=== PATIENT | male | born 1945 | race Caucasian/White ===

== ENCOUNTER → 2017-04-18 | Outpatient (CLI) | payer OTHER ==
[~2017-04-18] VITALS: Ht 172.7 cm; Wt 106.6 kg
[~2017-04-18] MED LIST: ACETAMINOPHEN 325 MG TAB PO PRN; DOCUSATE SOD 100 MG CAP PO SCH; GABA-497 PO; HYDR-4663 PO; HYDROcodone-ACET 10/325MG TAB PO PRN; HYDROmorphone HCL 2 MG/ML VL IV PRN; LACTATED RINGER'S 1,000 ML IV SCH; LOVA40TA72 PO; METO25TA5 PO; ONDANSETRON HCL 4 MG/2 ML VIAL IV PRN; SODIUM CHLOR 0.9% PF (SALINE LOCK) 10ML VIAL IV SCH; TEMAZEPAM 15 MG CAP PO PRN; WARF4TAB33 PO; ceFAZolin 1GM/50ML D5W 50 ML IV SCH; oxyCODONE ER 10 MG TAB PO SCH
[2017-04-18 12:48] LABS: Basophils # (auto) 0 uL; Basophils % (auto) 0.6 % (0.0-2.0); CONDITION Y; Eosinophils # (auto) 0.1 uL; Eosinophils % (auto) 1.8 % (0.0-7.0); Hematocrit 43.2 % (41.0-53.0); Lymphocytes # (auto) 2.2 uL; Lymphocytes % (auto) 32.5 % (10.0-50.0); Mean Corpuscular Hemoglobin 31.2 pg (28.0-32.0); Mean Corpuscular Hgb Conc. 34.8 g/dL (32.0-36.0); Mean Corpuscular Volume 89.8 fL (80.0-100.0); Mean Platelet Volume 8.7 fL (7.4-10.4); Monocytes # (auto) 0.6 uL; Monocytes % (auto) 9.4 % (0.0-12.0); Neutrophils # (auto) 3.7 uL; Neutrophils % (auto) 55.7 % (37.0-80.0); Platelet Count (auto) 148 10^3/uL (140-450); Red Cell Distribution Width 14.7 % (11.6-16.0); White Blood Cell 6.7 10^3/uL (4.4-10.8)
[2017-04-18 12:55] LABS: Potassium 3.9 mmol/L (3.5-5.1)
[2017-04-18 12:59] LABS: Albumin 4.1 g/dL (3.4-5.0); BUN/Creatinine Ratio 22.2; Calcium 8.9 mg/dL (8.5-10.1)
[2017-04-18 13:12] LABS: Bilirubin, Total 0.6 mg/dL (0.2-1.0); Total Protein 7.4 g/dL (6.4-8.2)
[2017-04-18 13:23] LABS: INR 1.93 (0.9-1.15); Partial Thromboplastin Time 35.9 sec (22.64-33.71)
[2017-04-18 13:38] LABS: Prothrombin Time 21.2 sec (9.37-12.3)
[2017-04-18 13:41] LABS: Urine Bilirubin Negative (Negative); Urine Blood Negative /uL (Negative); Urine Color Yellow (Yellow); Urine Glucose Normal (Normal); Urine Ketone Negative (Negative); Urine Mucus FEW (None Seen); Urine Nitrite Negative (Negative); Urine RBC <1 /hpf (0 - 3); Urine Squamous Epithelial Cell FEW /hpf (<5); Urine Urobilinogen Normal (Negative); Urine pH 5.5 (5.0-8.0)
[2017-04-23 07:58] LABS: Hematocrit 35.6 % (41.0-53.0); Hemoglobin 12.8 g/dL (13.5-17.5)
[2017-04-24 07:46] LABS: Hematocrit 30.2 % (41.0-53.0); Hemoglobin 10.5 g/dL (13.5-17.5)
== END | disposition home or self-care (01) ==
LOC: LAB 08:00 → EDSTATUS 04-22 07:00
PROVIDERS: ATTEND Orthopaedic Surgery
DX: M17.11 Unilateral primary osteoarthritis, right knee (principal); Z96.651 Presence of right artificial knee joint
CPT/HCPCS: 36415; 73562; 80053; 81001; 85014; 85018; 85025; 85610; 85730; 86850; 86900; 86901

== ENCOUNTER → 2017-05-19 | Outpatient (CLI) | payer OTHER ==
[~2017-05-19] MED LIST changes: -ACETAMINOPHEN 325 MG TAB PO PRN; -DOCUSATE SOD 100 MG CAP PO SCH; -HYDROcodone-ACET 10/325MG TAB PO PRN; -HYDROmorphone HCL 2 MG/ML VL IV PRN; -LACTATED RINGER'S 1,000 ML IV SCH; -ONDANSETRON HCL 4 MG/2 ML VIAL IV PRN; -SODIUM CHLOR 0.9% PF (SALINE LOCK) 10ML VIAL IV SCH; -TEMAZEPAM 15 MG CAP PO PRN; -ceFAZolin 1GM/50ML D5W 50 ML IV SCH; -oxyCODONE ER 10 MG TAB PO SCH
[2017-05-19 11:02] LABS: Basophils # (auto) 0 uL; Basophils % (auto) 0.7 % (0.0-2.0); CONDITION Y; Eosinophils # (auto) 0.1 uL; Eosinophils % (auto) 1.4 % (0.0-7.0); Hematocrit 39.9 % (41.0-53.0); Hemoglobin 13.4 g/dL (13.5-17.5); Lymphocytes # (auto) 1.7 uL; Mean Corpuscular Hemoglobin 30.5 pg (28.0-32.0); Mean Corpuscular Hgb Conc. 33.7 g/dL (32.0-36.0); Mean Corpuscular Volume 90.6 fL (80.0-100.0); Mean Platelet Volume 7.6 fL (7.4-10.4); Monocytes # (auto) 0.8 uL; Monocytes % (auto) 14.1 % (0.0-12.0); Neutrophils # (auto) 3.2 uL; Neutrophils % (auto) 54.8 % (37.0-80.0); Platelet Count (auto) 192 10^3/uL (140-450); Red Cell Distribution Width 16.4 % (11.6-16.0); White Blood Cell 5.8 10^3/uL (4.4-10.8)
== END | disposition home or self-care (01) ==
LOC: LAB 10:11
PROVIDERS: ATTEND Urology
DX: R31.0 Gross hematuria (principal)
CPT/HCPCS: 36415; 84153; 85025

== ENCOUNTER → 2017-06-02 | Outpatient (CLI) | payer OTHER ==
[2017-06-02 08:50] LABS: Basophils # (auto) 0 uL; Basophils % (auto) 0.9 % (0.0-2.0); CONDITION Y; Eosinophils # (auto) 0.1 uL; Eosinophils % (auto) 1.3 % (0.0-7.0); Hemoglobin 13.4 g/dL (13.5-17.5); Lymphocytes # (auto) 1.4 uL; Lymphocytes % (auto) 29.3 % (10.0-50.0); Mean Corpuscular Hemoglobin 29.9 pg (28.0-32.0); Mean Corpuscular Hgb Conc. 33.4 g/dL (32.0-36.0); Mean Corpuscular Volume 89.5 fL (80.0-100.0); Mean Platelet Volume 7.9 fL (7.4-10.4); Monocytes # (auto) 0.5 uL; Monocytes % (auto) 10.6 % (0.0-12.0); Neutrophils # (auto) 2.8 uL; Neutrophils % (auto) 57.9 % (37.0-80.0); Platelet Count (auto) 166 10^3/uL (140-450); Red Cell Distribution Width 16.1 % (11.6-16.0); White Blood Cell 4.9 10^3/uL (4.4-10.8)
[2017-06-02 09:13] LABS: Albumin 3.9 g/dL (3.4-5.0); BUN/Creatinine Ratio 20.9; Bilirubin, Total 0.6 mg/dL (0.2-1.0); Calcium 9.7 mg/dL (8.5-10.1); Potassium 4.1 mmol/L (3.5-5.1); Total Protein 7.5 g/dL (6.4-8.2)
== END | disposition home or self-care (01) ==
LOC: LAB 07:54
PROVIDERS: ATTEND Family Medicine
DX: E61.1 Iron deficiency (principal); R31.9 Hematuria, unspecified
CPT/HCPCS: 36415; 80053; 85025

== ENCOUNTER → 2017-09-29 | Outpatient (CLI) | payer OTHER ==
[~2017-09-29] MED LIST changes: -GABA-497 PO; +GABA300C10 PO; -HYDR-4663 PO; +HYDR-4683 PO
[2017-09-29 11:06] LABS: Urine Bacteria NONE SEEN /hpf (None Seen); Urine Blood Negative /uL (Negative); Urine Mucus FEW (None Seen); Urine Specific Gravity 1.021 (1.001-1.035); Urine WBC 2 /hpf (0 - 3)
[2017-09-29 11:29] LABS: Albumin 4.3 g/dL (3.4-5.0); BUN/Creatinine Ratio 15.3; Bilirubin, Total 0.7 mg/dL (0.2-1.0); CRP High Sensitivity 0.34 mg/dL (< 0.3); Calcium 9.5 mg/dL (8.5-10.1); Potassium 4.4 mmol/L (3.5-5.1)
== END | disposition home or self-care (01) ==
LOC: LAB 10:38
PROVIDERS: ATTEND Internal Medicine
DX: E66.9 Obesity, unspecified (principal); Z79.01 Long term (current) use of anticoagulants; Z95.4 Presence of other heart-valve replacement; Z68.33 Body mass index [BMI] 33.0-33.9, adult
CPT/HCPCS: 36415; 80053; 80061; 81001; 83036; 84153; 84443; 86141